=== PATIENT | male | born 1970 | race Caucasian/White ===

== ENCOUNTER 2018-04-11 11:50 | Emergency (ER) | payer MEDICAID ==
[2018-04-11 11:55] VITALS: BP 146/105
[2018-04-11] MEDS ORDERED: OXYCODONE/APAP 5/325MG PREPACK#4 BTL TAKEHOME ONE (12:06)
[2018-04-11] MEDS ORDERED: CEPHALEXIN 500 MG CAP PO ONE (12:06)
[2018-04-11] MEDS ORDERED: CEPHALEXIN 500MG PREPACK#4 BTL TAKEHOME ONE (12:06)
--- NOTE | 2018-04-11 12:08 | EDPHY ---
H & P Stated Complaint: right sided mouth pain Time Seen by Provider: 04/11/18 12:00 - Personal History Current Tetanus/Diphtheria Vaccine: Yes - Medical/Surgical History Hx Asthma: No Hx Chronic Respiratory Disease: No Hx Diabetes: No Hx Cardiac Disease: Yes Hx Renal Disease: No Hx Cirrhosis: No Hx Alcoholism: No Other PMH: [place] 02/2018, - Social History Smoking Status: Heavy smoker Constitutional: Initial Vital Signs Temperature (C) 36.6 C 04/11/18 11:51 Heart Rate 78 04/11/18 11:51 Respiratory Rate 18 04/11/18 11:51 Blood Pressure 146/105 H 04/11/18 11:51 O2 Sat (%) 93 04/11/18 11:51 O2 Delivery Mode Room Air Allergies/Adverse Reactions: No Known Allergies Allergy (Unverified 04/11/18 11:55) Home Medications: Medication Instructions Recorded Cephalexin [Keflex (RX)] 500 mg PO TID #30 cap 04/11/18 oxyCODONE IR [Oxycodone Ir (*)] 5 - 10 mg PO Q6 PRN #20 tab 04/11/18 Medical Decision Making ED Course/Re-evaluation: CHIEF COMPLAINT: Jaw and neck pain HISTORY OF PRESENT ILLNESS: The patient is a 47 y/o male complaining of right-sided jaw and neck pain. He recently had a dental procedure performed and is scheduled for a follow up on April 17. However, his pain has significantly increased and he has been unable to see his dentist. No fever, headache, chest pain, shortness of breath, abdominal pain, urinary or bowel complaints, numbness, paresthesias. REVIEW OF SYSTEMS: A comprehensive 10 system review of systems is otherwise negative aside from the elements mentioned in the history of present illness and medical decision making. PHYSICAL EXAM: HR, BP, O2 Sat, RR. Temp noted General Appearance: Alert, well hydrated, appropriate, and non-toxic appearing. Head: Atraumatic without scalp tenderness or obvious injury Eyes: Pupils equal, round, reactive to light and accommodation, EOMI, no trauma , no injection. Ears: Clear bilaterally, no perforation, normal landmarks Nose: Atraumatic, no rhinorrhea, clear. Mouth: Broken off right first molar with swelling an infection. Throat: There is no erythema or exudates, no lesions, normal tonsils, mucus membranes moist. Neck: Supple, 2+ carotid upstroke, nontender, right-sided submandibular lymphadenopathy. Respiratory: No retractions, no distress, no wheezes, and no accessory muscle use. Lungs are clear to auscultation bilaterally. Cardiovascular: Regular rate and rhythm, no murmurs, rubs, or gallops. Bilateral carotid, radial, dorsalis pedis, and posterior tibial pulses intact. Good capillary refill all extremities. Gastrointestinal: Abdomen is soft, nontender, non-distended, no masses, no rebound, no guarding, no peritoneal signs. Musculoskeletal: Normal active ROM of all extremities, atraumatic. Neurological: Alert, appropriate, and interactive. The patient has normal DTRs and non-focal cranial nerves, motor, sensory, and cerebellar exam. Skin: No rashes, good turgor, no nodules on palpation. Past medical history: [place] Past surgical history: Denies Family history: Denies Social history: Transient, single, not employed DIAGNOSTICS/PROCEDURES/CRITICAL CARE TIME: Not indicated DIFFERENTIAL DIAGNOSIS: The differential diagnosis for the patient's jaw pain included but was not limited to dental abscess, dental caries, viral syndrome, and sepsis. MEDICAL DECISION MAKING: The patient is a 47 y/o male presenting with right-sided jaw and neck pain secondary to a dental procedure several days ago. On exam he has a broken right lower first molar with surrounding infection and tenderness. He also has right submandibular lymphadenopathy. 500mg PO Keflex administered. 1210: Reassessed patient and discussed taking Keflex and OxyIR as prescribed. I have also discussed keeping his follow up appointment. Return precautions provided; patient is comfortable with this plan. Departure - Departure Disposition: Home, Routine, Self-Care Clinical Impression: Abscess, dental, Infected dental caries Condition: Good Instructions: Cephalexin (By mouth), Oxycodone/Acetaminophen (By mouth), Dental Abscess (ED), Toothache (ED) Additional Instructions: 1. Take Keflex and OxyIR as prescribed. 2. Follow-up with your dentist within one week. 3. Return to the ED for fever, difficulty swallowing, increase in swelling or other concerns. Referrals: [facility] [Outside] - As per Instructions Prescriptions: Cephalexin [Keflex (RX)] 500 mg PO TID #30 cap oxyCODONE IR [Oxycodone Ir (*)] 5 - 10 mg PO Q6 PRN #20 tab PRN Reason: Pain, Severe Report Scribed for: Zeke Thomas Report Scribed by: Reema Martínez Date of Report: 04/11/18 Time of Report: 12:23
== END 2018-04-11 12:29 | disposition home or self-care (01) ==
DX: K04.7 Periapical abscess without sinus (principal); K02.9 Dental caries, unspecified